=== PATIENT | female | born 1940 | race Caucasian/White ===

== ENCOUNTER 2019-02-21 19:30 | Emergency (ER) | payer MEDICARE ==
[~2019-02-21] VITALS: Ht 154.9 cm; Wt 82.1 kg
[2019-02-22 01:29] VITALS: BP 102/51
== END 2019-02-22 02:25 ==
LOC: ED 02-22 02:19
DX: A09 Infectious gastroenteritis and colitis, unspecified (principal); I10 Essential (primary) hypertension; Z90.710 Acquired absence of both cervix and uterus
CPT/HCPCS: 36415; 71045; 74177; 80053; 84484; 85025; 93005; 96374; 99284; J2405; Q9967

== ENCOUNTER → 2019-06-27 | Outpatient (CLI) | payer MEDICARE ==
[~2019-06-27] MED LIST: APIX5TAB PO; ASPI81TA45 PO; CEFD300C37 PO; DILT360T PO; DOXY100T PO; GUAI600T31 PO; LEVO25TA4 PO; LISI-170 PO; LISI1TAB20 PO
== END | disposition home or self-care (01) ==
LOC: CFH 09:51
PROVIDERS: ATTEND Nurse Practitioner Family
CPT/HCPCS: 77080